=== PATIENT | male | born 1975 | race Caucasian/White ===

== ENCOUNTER 2018-08-08 11:29 | Emergency (ER) | payer BC, OTHER ==
[2018-08-08] MEDS ORDERED: Sodium Chloride 0.9% 10 ML Syringe FLUSH PRN (11:50)
[2018-08-08] MEDS ORDERED: Acetaminophen/HYDROcodone 325-5 MG Tab PO ONE (11:56)
--- NOTE | 2018-08-08 11:59 | EDM.PDOC ---
ED HPI GENERAL MEDICAL PROBLEM - General Chief Complaint: General Stated Complaint: SWELLING IN BACK OF HEAD Time Seen by Provider: 08/08/18 11:45 Source of Information: Reports: Patient History Limitations: Reports: No Limitations - History of Present Illness INITIAL COMMENTS - FREE TEXT/NARRATIVE: 42 yo male presents with a rapidly growing, mildly tender mass posterior to his R ear. He believes he first noticed it early this past Monday. Today for the first time he has a little tenderness with turning his head to the right. No fever, injury, or drainage. No other sx's. No hx of the same. Onset: Gradual Onset Date: 08/06/18 Duration: Day(s): (2+), Constant, Getting Worse Location: Reports: Head (R scalp behind the ear. ) Quality: Reports: Dull Severity: Mild Improves with: Reports: Medication Worsens with: Reports: Other (time) Context: Reports: Other (See HPI) Associated Symptoms: Reports: No Other Symptoms. Denies: Fever/Chills, Headaches, Rash Treatments [employer]: Reports: NSAIDS (minimal reduction in his pain) Right Head Pain Score (Numeric/FACES): 4 - Related Data Allergies Allergy/AdvReac Type Severity Reaction Status Date / Time No Known Allergies Allergy Verified 08/08/18 12:05 Home Meds: Home Meds Acetaminophen/HYDROcodone [[place] 325-5 MG] 1 - 2 tab PO Q6H PRN #20 tab [Rx] Cephalexin [Keflex] 500 mg PO QID #30 capsule 08/08/18 [Rx] Clindamycin HCl 300 mg PO QID #30 capsule 08/08/18 [Rx] ED ROS GENERAL - Review of Systems Review Of Systems: See Below Constitutional: Reports: No Symptoms HEENT: Reports: No Symptoms Respiratory: Reports: No Symptoms Cardiovascular: Reports: No Symptoms GI/Abdominal: Reports: No Symptoms : Reports: No Symptoms Musculoskeletal: Reports: No Symptoms Skin: Reports: Lumps (10 x 7 cm mass posterior to the R ear. ) Neurological: Reports: No Symptoms Psychiatric: Reports: No Symptoms ED EXAM, GENERAL - Physical Exam Exam: See Below Exam Limited By: No Limitations General Appearance: Alert, WD/WN, No Apparent Distress Eye Exam: Bilateral Eye: Normal Inspection Ears: Normal External Exam, Normal Canal, Hearing Grossly Normal Ear Exam: Bilateral Ear: Auricle Normal, Canal Normal Nose: Normal Inspection, No Blood Throat/Mouth: Normal Inspection, Normal Lips, Normal Voice, No Airway Compromise Head: Atraumatic, Other (10 x 7.5 cm mass behind the R ear, not fluctuant, is firm, not warmer than the surrounding skin. No drainage. Raised about 0.75 cm over surrounding skin. Mildly more tender when palpated. ) Neck: Normal Inspection, Supple, Non-Tender, Full Range of Motion. No: Lymphadenopathy (R), Lymphadenopathy (L) Respiratory/Chest: No Respiratory Distress, No Accessory Muscle Use Cardiovascular: Regular Rate, Rhythm Extremities: Normal Inspection Neurological: Alert, Oriented, CN II-XII Intact, Normal Cognition, No Motor/ Sensory Deficits Psychiatric: Normal Affect, Normal Mood Skin Exam: Warm, Dry, Intact, Normal Color, No Rash Course - Vital Signs Last Recorded V/S: Last Vital Signs Temp 36.2 C 08/08/18 12:02 Pulse 90 08/08/18 12:02 Resp 16 08/08/18 12:02 BP 175/102 H 08/08/18 12:02 Pulse Ox 96 08/08/18 12:02 - Orders/Labs/Meds Orders: Active Orders 24 hr Category Date Time Status Iopamidol [Isovue-300 (61%)] Med 08/08/18 12:30 Active 100 ml IV . DIRECTED Sodium Chloride 0.9% [Normal Saline] 70 ml Med 08/08/18 12:30 Active IV ASDIRECTED Sodium Chloride 0.9% [Saline Flush] Med 08/08/18 11:50 Active 10 ml FLUSH ASDIRECTED PRN cefTRIAXone [Rocephin] 1 gm Med 08/08/18 13:29 Ordered Sodium Chloride 0.9% [Normal Saline] 50 ml IV ONETIME Saline Lock Insert [OM.PC] Routine Oth 08/08/18 11:50 Ordered Medication Orders Sodium Chloride (Normal Saline) 70 mls @ 3 mls/sec IV ASDIRECTED ANGE Last Admin: 08/08/18 12:25 Dose: 3 mls/sec Ceftriaxone Sodium 1 gm/ (Sodium Chloride) 50 mls @ 100 mls/hr IV ONETIME ONE Stop: 08/08/18 13:58 Iopamidol (Isovue-300 (61%)) 100 ml IV . DIRECTED ANGE Last Admin: 08/08/18 12:24 Dose: 100 ml Sodium Chloride (Saline Flush) 10 ml FLUSH ASDIRECTED PRN PRN Reason: Keep Vein Open Last Admin: 08/08/18 12:08 Dose: 10 ml Labs: Laboratory Tests 08/08/18 08/08/18 Range/Units 12:12 12:12 WBC 5.7 (4.5-11.0) K/uL RBC 6.19 H (4.30-5.90) M/uL Hgb 15.3 H (12.0-15.0) g/dL Hct 47.3 (40.0-54.0) % MCV 76 L (80-98) fL MCH 25 L (27-31) pg MCHC 32 (32-36) % Plt Count 156 (150-400) K/uL Sodium 139 L (140-148) mmol/L Potassium 4.1 (3.6-5.2) mmol/L Chloride 104 (100-108) mmol/L Carbon Dioxide 26 (21-32) mmol/L Anion Gap 13.1 (5.0-14.0) mmol/L BUN 15 (7-18) mg/dL Creatinine 1.0 (0.8-1.3) mg/dL Est Cr Clr Drug Dosing 90.89 mL/min Estimated GFR (MDRD) > 60 (>60) Glucose 109 H (74-106) mg/dL Calcium 9.3 (8.5-10.1) mg/dL Meds: Medications Generic Name Dose Route Start Last Admin Trade Name Freq PRN Reason Stop Dose Admin Sodium Chloride 70 mls @ 3 mls/sec 08/08/18 12:30 08/08/18 12:25 Normal Saline IV 3 mls/sec ASDIRECTED ANGE Administration Ceftriaxone Sodium 1 gm/ 50 mls @ 100 mls/hr 08/08/18 13:29 Sodium Chloride IV 08/08/18 13:58 ONETIME ONE Iopamidol 100 ml 08/08/18 12:30 08/08/18 12:24 Isovue-300 (61%) IV 100 ml . DIRECTED ANGE Administration Sodium Chloride 10 ml 08/08/18 11:50 08/08/18 12:08 Saline Flush FLUSH 10 ml ASDIRECTED PRN Administration Keep Vein Open Discontinued Medications Generic Name Dose Route Start Last Admin Trade Name Freq PRN Reason Stop Dose Admin Hydrocodone Bitart/Acetaminophen 1 tab 08/08/18 11:56 08/08/18 12:07 [place] 325-5 Mg PO 08/08/18 11:57 1 tab ONETIME ONE Administration Clindamycin HCl 300 mg 08/08/18 13:29 Cleocin PO 08/08/18 13:30 ONETIME ONE Sodium Chloride 10 ml 08/08/18 12:17 08/08/18 12:25 Saline Flush FLUSH 08/08/18 12:18 10 ml ONETIME ONE Administration - Radiology Interpretation Free Text/Narrative:: CT soft tissue neck with IV contrast-looks to radiology like as tissue infection CT Results Date: 08/08/18 Departure - Departure Time of Disposition: 14:00 Disposition: Home, Self-Care 01 Condition: Good Clinical Impression: Infection of scalp - Discharge Information *PRESCRIPTION DRUG MONITORING PROGRAM REVIEWED*: No *COPY OF PRESCRIPTION DRUG MONITORING REPORT IN PATIENT MARGARET: No Prescriptions: Acetaminophen/HYDROcodone [[place] 325-5 MG] 1 - 2 tab PO Q6H PRN #20 tab PRN Reason: Pain Cephalexin [Keflex] 500 mg PO QID #30 capsule Clindamycin HCl 300 mg PO QID #30 capsule Instructions: Cellulitis, Adult, [id number] Referrals: Guilherme Sierra LAUNDRY SORTER [Primary Care Provider] - Forms: ED Department Discharge Additional Instructions: Take cephalexin and clindamycin every 6 hrs as directed, see start times on bottles. Use ibuprofen and/or acetaminophen as needed for pain relief. Substitute [place] for the acetaminophen if more pain relief is required. Recheck in the clinic with your provider on Monday, return here if a lot worse before then. Apply warm compresses to the area several times daily. - My Orders Last 24 Hours: My Active Orders 08/08/18 11:50 Sodium Chloride 0.9% [Saline Flush] 10 ml FLUSH ASDIRECTED PRN Saline Lock Insert [OM.PC] Routine 08/08/18 12:30 Iopamidol [Isovue-300 (61%)] 100 ml IV . DIRECTED Sodium Chloride 0.9% [Normal Saline] 70 ml IV ASDIRECTED 08/08/18 13:29 cefTRIAXone [Rocephin] 1 gm Sodium Chloride 0.9% [Normal Saline] 50 ml IV ONETIME - Assessment/Plan Last 24 Hours: My Active Orders 08/08/18 11:50 Sodium Chloride 0.9% [Saline Flush] 10 ml FLUSH ASDIRECTED PRN Saline Lock Insert [OM.PC] Routine 08/08/18 12:30 Iopamidol [Isovue-300 (61%)] 100 ml IV . DIRECTED Sodium Chloride 0.9% [Normal Saline] 70 ml IV ASDIRECTED 08/08/18 13:29 cefTRIAXone [Rocephin] 1 gm Sodium Chloride 0.9% [Normal Saline] 50 ml IV ONETIME
[2018-08-08] MEDS ORDERED: Sodium Chloride 0.9% 10 ML Syringe FLUSH ONE (12:17)
[2018-08-08] MEDS ORDERED: Iopamidol 612 MG/ML 100 ML Bottle IV SCH (12:30)
--- NOTE | 2018-08-08 13:11 | CRLCT ---
INDICATION: Rapidly growing mass behind the right ear TECHNIQUE: CT soft tissue of the neck was acquired with IV contrast. 100 mL of Isovue 300 administered. COMPARISON: None available FINDINGS: There is scalp soft tissue thickening and edema in the right occipital region with regional subcutaneous edema and stranding and several subcentimeter enhancing lymph nodes. There is a 7 x 5 x 7 mm soft tissue density in the right postero-auricular region on image 14 of series 3 which could represent a lymph node. Otherwise, no discrete mass or collection are seen. No abnormally enlarged cervical lymph nodes are seen. The nasopharynx, oropharynx, hypopharynx and larynx are patent. No tonsillar or peritonsillar collection are seen. The parotid, submandibular and sublingual glands are within normal limits. A subcentimeter ovoid low-attenuation soft tissue density inferior to the right parotid on image 32 of series 5 could represent a lymph node. No discrete thyroid abnormalities seen. No suspicious or acute osseous abnormalities are seen. There are degenerative changes in the cervical spine. There is minor left maxillary sinus mucosal thickening. IMPRESSION: Right occipital scalp thickening and edema with regional subcutaneous stranding and several subcentimeter subcutaneous lymph nodes, including a possible subcentimeter lymph nodes in the postero auricular region. Correlate for cellulitis/soft tissue infection. No discrete regional collection seen. Dictated by Taj Vyas MD @ 08/08/2018 1:09:34 PM Please note that all CT scans at this facility use dose modulation, iterative reconstruction, and/or weight-based dosing when appropriate to reduce radiation dose to as low as reasonably achievable. Dictated by: Taj Vyas MD @ 08/08/2018 13:09:40 (Electronically Signed)
[2018-08-08] MEDS ORDERED: Clindamycin HCl 150 MG Cap PO ONE (13:29)
[2018-08-08] MEDS ORDERED: cefTRIAXone 1 GM in Sodium Chloride 0.9% 50 ML IV ONE ×2 (13:29→13:45)
== END 2018-08-08 14:11 | disposition home or self-care (01) ==
LOC: JP.ED 11:29
DX: L08.9 Local infection of the skin and subcutaneous tissue, unspecified (principal)
CPT/HCPCS: 36415; 70491; 80048; 85027; 96365; 99284; A9270; J0696; J7030; J7050; Q9967